=== PATIENT | female | born 1965 | race African-American/Black ===

== ENCOUNTER 2018-03-22 10:54 | Outpatient (CLI) | payer BC ==
--- NOTE | 2018-03-22 14:00 | RAD ---
THREE VIEWS OF THE LEFT ANKLE: INDICATION: Left ankle pain. COMPARISON: None. FINDINGS: No acute fracture or subluxation is evident. Enthesopathic change is seen off the calcaneus. IMPRESSION: No acute osseous abnormality. POS: [id number]
== END 2018-03-22 10:55 | disposition home or self-care (01) ==
LOC: RAD-FRANK 10:54
PROVIDERS: ATTEND Nurse Practitioner Family
DX: M25.572 Pain in left ankle and joints of left foot (principal); Z12.11 Encounter for screening for malignant neoplasm of colon